=== PATIENT | female | born 1990 | race Caucasian/White ===

== ENCOUNTER 2017-12-27 11:33 | Emergency (ER) | payer SELFPAY ==
[~2017-12-27] VITALS: Ht 167.6 cm; Wt 77.1 kg
[2017-12-27 11:52] VITALS: BP 128/88
[2017-12-27] MEDS ORDERED: AZIT250T6 PO (12:13)
[2017-12-27] MEDS ORDERED: BENZ100C PO (12:13)
--- NOTE | 2017-12-27 12:13 | PHYS DOC ---
Past Medical History Past Medical History: Fibromyalgia Additional Past Medical Histor: PVC,AIH,HPV STAGE 2 Past Surgical History: Cholecystectomy, Tonsillectomy Alcohol Use: None Drug Use: None Adult General Chief Complaint Chief Complaint: Congestion HPI HPI Patient is a 26 year old female who presents with diffuse sinus tenderness and congestion with productive cough for the last 2 weeks. She denies fever or chills. Review of Systems Review of Systems Constitutional: Denies fever or chills [] HENT: Reports sinus congestion and tenderness Respiratory: Her porch productive cough, denies shortness of breath Cardiovascular: No additional information not addressed in HPI [] Integument: Denies rash or skin lesions [] Neurologic: Denies headache, focal weakness or sensory changes [] All other systems were reviewed and found to be within normal limits, except as documented in this note. Allergies Allergies Allergies Coded Allergies Type Severity Reaction Last Updated Verified prednisone Allergy Severe HIVES 12/27/17 Yes Physical Exam Physical Exam Constitutional: Well developed, well nourished, no acute distress, non-toxic appearance. [] HENT: Normocephalic, atraumatic, bilateral TMs normal, oropharynx moist, no oral exudates, sinus tenderness on palpation diffusely Eyes: PERRLA, EOMI, conjunctiva normal, no discharge. [] Neck: Normal range of motion, no tenderness, supple, no stridor. [] Cardiovascular:Heart rate regular rhythm, no murmur [] Lungs & Thorax: Bilateral breath sounds clear to auscultation [] Skin: Warm, dry, no erythema, no rash. [] Neurologic: Alert and oriented X 3, normal motor function, normal sensory function, no focal deficits noted. [] Psychologic: Affect normal, judgement normal, mood normal. [] Current Patient Data Vital Signs Vital Signs Date Time Temp Pulse Resp B/P (MAP) Pulse Ox O2 Delivery O2 Flow Rate FiO2 12/27/17 11:52 97.8 67 16 128/88 (101) 99 Room Air 97.8 EKG EKG [] Radiology/Procedures Radiology/Procedures [] Course & Med Decision Making Course & Med Decision Making Pertinent Labs and Imaging studies reviewed. (See chart for details) Plan: Patient is requesting azithromycin and reports female she usually takes care of this issue for her. Z-Prabhu Rx, Tessalon Perles Rx, follow-up with PCP, return precautions reviewed[] Dragon Disclaimer Dragon Disclaimer This electronic medical record was generated, in whole or in part, using a voice recognition dictation system. Departure Departure Impression: Primary Impression: Sinusitis Disposition: HOME, SELF-CARE Condition: GOOD Referrals: GABE BATEMAN MD (PCP) Patient Instructions: Sinusitis Scripts Benzonatate (TESSALON PERLE) 100 Mg Capsule 1 CAP PO TID, #30 CAP Prov: JONELLE WHITTINGTON APRN 12/27/17 Azithromycin (AZITHROMYCIN TABLET) 250 Mg Tablet 1 PKG PO UD, #6 TAB Prov: JONELLE WHITTINGTON APRN 12/27/17 Problem Qualifiers Primary Impression: Sinusitis Sinusitis location: pansinusitis Chronicity: acute Recurrence: non- recurrent Qualified Codes: J01.40 - Acute pansinusitis, unspecified JONELLE WHITTINGTON APRN Dec 27, 2017 12:13
== END 2017-12-27 12:25 | disposition home or self-care (01) ==
LOC: ER 11:33
DX: J01.40 Acute pansinusitis, unspecified (principal); Z90.49 Acquired absence of other specified parts of digestive tract; Z90.89 Acquired absence of other organs; Z88.8 Allergy status to other drugs, medicaments and biological substances
CPT/HCPCS: 99283